=== PATIENT | male | born 1965 | race Caucasian/White ===

== ENCOUNTER → 2016-08-03 | Outpatient (CLI) | payer OTHER ==
[~2016-08-03] MED LIST: FLUO20CA35 PO
--- NOTE | 2016-08-04 06:30 | PAP/PSG TECHNICIAN REPORT ---
[facility] Mail Rider Polysomnogram Report Study name: None Report date: 08/04/2016 Study date: 08/03/2016 Referring Physician: Name: PHIL CHEEK Interpreting Physician: Admin Date of : 1965 Mail Rider: Marlin Berry [facility]. Sex: Male Age: 51 StudyType: PSG PAP Weight: 250 lbs Height: 51 years, Height 5' 10" BMI: 35.87 Medications: Cialis 20 mg, Doxazosin 2 mg, Lopressor 25 mg, Lopid 600 mg, Metformin 500 mg, Patient History 51yr.old male here for a titration sleep study. Patient has been on AUTO PAP 5-20. Parameters Monitored NPSG: E1-M2, E2-M1, Fp1-M2, Fp2-M1, F3-M2, F4-M2, F4-M1, C3-M2, C4-M2, C4-M1, O1-M2, O2-M2, O2-M1, T3-M2, T4-M1, P3-M2, P4-M1, CHIN1, CHIN2, HR, EKG, Legs, PFLOW, SNOR, FLOW, CFLOW, Tidal Volume, THOR, ABDO, SpO2, PLTH, CPRESS, ETCO2 Wave, ETCO2, pH Sleep Architecture Sleep Stages Time at Lights Off 9:26:55 PM STAGES Time (min.) TST (%) Time at Lights On 5:23:25 AM Wake 62.5 -- Total Recording Time (TRT) 477.00 min. N1 24.0 6 Total Sleep Period (TSP) 455.5 min. N2 290.0 70 Total Sleep Time (TST) 414.0min. N3 15.5 4 Awake Time 63.0 min. REM 84.5 20 Wake after Sleep Onset 42.0 min. Sleep Efficiency (SE) 87 % Sleep Onset Latency (PATRICIA) 20.5 min. Number of Stage 1 Shifts None Awakenings 21 Stage Changes 81 Number of REM periods 5 REM 84.5 20 REM Latency 70.0 min. NREM 329.5 80 Body Position Analysis Supine Right Left Side Prone Vertical Total Sleep Time (min.) 388.6 66.5 0.0 66.50 0.0 0.0 Total Sleep Time (%) 84% 16% 0% 16 0% N/A% Total Sleep Time REM (min.) 84.5 0.0 0.0 None 0.0 0.0 Total Sleep Time NREM (min.) 263.0 66.5 0.0 None 0.0 0.0 Intermittent Wake (min.) 41.1 21.4 0.0 None 0.0 0.0 Total Sleep Period (%) 81% None None None None None Arousals Myoclonus (PLM) * Events Count Index Events Count Index Spontaneous 3 0 Events Awake (PLMW) 74 71.0 Respiratory 2 0.3 Events Asleep w/ Arousal (PLMA) 12 1.7 PLM 12 2 Events Asleep w/o Arousal (PLMS) 35 5.1 Snoring 2 0 Total Asleep 47 6.8 Total 19 3 Total 121 15 Respiratory Analysis * CA OA MA CH H RERA Total Count 1 2 0 0 72 1 75 Index 0.1 0.3 0.0 0 10.4 0 11.0 Mean Duration 28.2 10.8 0.0 0.00 25.6 24.1 25.2 Longest Duration 28.2 11.6 0.0 0.00 0.0 24.1 47.7 Respiratory Event Summary Total Supine ~Supine Right Left Prone REM NREM Apneas Count 3 3 0 0 N/A N/A 0 3 Index 0.4 1 0 0.0 N/A N/A 0 1 Hypopneas (4% Desat) Count 72 72 0 0 N/A N/A 36 36 Index 10.4 12.4 0 0.0 N/A N/A 25.6 6.6 Apneas & All Hypopneas Count 75 75 0 0 N/A N/A 36 39 Index 10.9 13 0 0 N/A N/A 25.6 7.1 Respiratory Events (Consultative Sales Associate+All Hyp+RERA) Count 75 76 0 0 N/A N/A 36 39 Index 11.0 13 0 0.0 N/A N/A 25.6 7.3 Respiratory Related Arousal Count 2 76 0 0 N/A N/A 0 2 Index 0.3 0 0 0 N/A N/A 0 0 Snoring Analysis Supine Right Left Prone REM NREM Total Snore duration 30.4 min Snores count 1,308 1 N/A N/A 99 1,210 1,309 Snore mean duration 1.4 Sec Snores index 226 1 N/A N/A 70.3 220.3 189.7 TST with snoring (%) 7.3% Desaturation Event Summary: Minimum %SpO2 Event Count Mean/Min/Max Duration(sec.) Desaturation Index % Time In Bed > 90 92 22.0 / 6.3 / 59.0 17.7 66.7 86 - 90 13 18.3 / 6.3 / 52.8 5.1 32.9 81 - 85 0 N/A 0.0 0.4 76 - 80 0 N/A 0.0 0.0 71 - 75 0 N/A 0.0 0.0 66 - 70 0 N/A 0.0 0.0 61 - 65 0 N/A 0.0 0.0 56 - 60 0 N/A 0.0 0.0 51 - 55 0 N/A 0.0 0.0 < 50 0 N/A 0.0 0.0 Total REM NREM Awake <50% 0.0 min. 0.0 min. 0.0 min. 0.0 min. 51 - 60% 0.0 min. 0.0 min. 0.0 min. 0.0 min. 61 - 70% 0.0 min. 0.0 min. 0.0 min. 0.0 min. 71 - 80% 0.0 min. 0.0 min. 0.0 min. 0.0 min. 81 - 90% 155.6 min. 37.2 min. 107.5 min. 10.9 min. 91 - 100% 312.0 min. 47.3 min. 221.7 min. 43.0 min. Average 91 91 91 92 Minimum SpO2 81 82 81 83 Desaturation Event Index 11.8 27.7 8.7 7.7 # Desat. Events below 89% 44 28 15 1 Time(%) with Saturation below 89% 5.9 2.1 3.5 0.4 Time(min.) with Saturation below 89% 27.5 9.6 16.2 1.6 Time (mins) REM (mins) NREM (mins) % of TST SpO2 Below 90% 83 39 N44 16.6 SpO2 Below 88% 14 0 0 1 Heart Rate Analysis Min (bpm) Max (bpm) Average (bpm) Awake 41 78 65 NREM 55 74 61 REM 56 72 62 Overall 55 74 61 Supplemental O2 Values Minimum O2 level: None Value Start Time End Time Mail Rider Comments Mr. Cheek slept in the right and supine position. No cardiac arrhythmia. PLMs noted. No bruxism noted. CPAP was initiated at +4 CMH2O room air and up-titrated to an optimal level of +14 CMH2O Cflex 2 , which nearly eliminated all respiratory events and snoring. Patient started with a large ResMed F20, the leak was high, and was switched to a ResMed Mirage Quatttro. Mr. Cheek awoke to use the restroom once during the night. .Mr. Cheek stated, I slept well. The final report will be interpreted and signed by a sleep physician. The completed physician report will then be placed in the patient medical record. Therapy Event: Therapy (cm H20) 4 5 6 7 8 9 Total Time at Pressure (min.) 44.2 14.9 48.3 12.6 20.8 59.0 TST at Pressure (min.) 18.7 14.4 46.8 12.6 20.8 57.0 # Periods 1 1 1 1 1 1 Sleep Onset (min.) 20.5 0.0 0.0 0.0 0.0 0.0 REM Onset (min.) N/A N/A 31.4 3.1 0.0 N/A Sleep Efficiency % 42 96 96 100 100 96 Wakefulness (%) 57.8 3.3 3.1 0.0 0.0 3.4 Wakefulness (min.) 25.5 0.5 1.5 0.0 0.0 2.0 NREM 1 (%) 14.7 3.3 3.1 0.0 2.4 2.5 NREM 1 (min.) 6.5 0.5 1.5 0.0 0.5 1.5 NREM 2 (%) 27.5 93.3 78.2 24.9 63.8 79.7 NREM 2 (min.) 12.2 13.9 37.8 3.1 13.3 47.0 NREM 3 (%) 0.0 0.0 14.5 0.0 0.0 14.4 NREM 3 (min.) 0.0 0.0 7.0 0.0 0.0 8.5 REM (%) 0.0 0.0 1.0 75.1 33.8 0.0 REM (min.) 0.0 0.0 0.5 9.5 7.0 0.0 # Arousals 1 0 2 0 2 3 Arousal Index 3.2 0.0 2.6 0.0 5.8 3.2 # Snore 75 156 543 77 115 244 Snore Index 241.2 648.1 696.5 367.2 331.3 256.9 AHI 0.0 12.5 6.4 57.2 37.4 9.5 AHI Supine 0.0 12.5 6.4 57.2 37.4 9.5 AHI Non-Supine N/A N/A N/A N/A N/A N/A NREM AHI 0.0 12.5 6.5 19.2 39.2 9.5 REM AHI N/A N/A 0.0 69.8 34.1 N/A RDI 0.0 12.5 6.4 57.2 37.4 10.5 # Obstructive 0 0 0 0 1 0 # Central Ap 0 0 0 0 0 1 # Mixed 0 0 0 0 0 0 # Hypopneas 0 3 5 12 12 8 RERAS 0 0 0 0 0 1 Total Respiratory Events 0 3 5 12 13 10 Time Below SpO2 89.00% (min.) 1.2 0.8 0.5 1.7 0.9 0.3 Mean NREM SpO2 (%) 90 91 91 91 92 91 Mean REM SpO2 (%) N/A N/A 91 90 91 N/A Mean Sleep SpO2 (%) 90 91 91 90 92 91 Min NREM SpO2 (%) 88 88 88 89 87 85 Min REM SpO2 (%) N/A N/A 89 83 84 N/A Position Supine (min.) 18.7 14.4 46.8 12.6 20.8 57.0 Position Non-supine (min.) 0.0 0.0 0.0 0.0 0.0 0.0 LM Index Sleep 16.1 4.2 5.1 14.3 25.9 4.2 LM Index NREM 16.1 4.2 2.6 0.0 26.1 4.2 LM Index REM N/A N/A 240.0 19.0 25.5 N/A Mean Heart Rate (bpm) 65 64 64 66 63 63 Min Heart Rate (bpm) 61 61 60 61 59 57 Therapy (cm H20) 10 11 12 13 14 Total Time at Pressure (min.) 13.2 15.5 129.7 19.6 98.7 TST at Pressure (min.) 12.7 15.5 106.2 19.6 89.7 # Periods 1 1 1 1 1 Sleep Onset (min.) 0.0 0.0 0.0 0.0 0.0 REM Onset (min.) 7.2 0.0 0.0 10.3 0.0 Sleep Efficiency % 96 100 81 100 90 Wakefulness (%) 3.8 0.0 18.1 0.0 9.1 Wakefulness (min.) 0.5 0.0 23.5 0.0 9.0 NREM 1 (%) 0.0 0.0 6.6 2.5 4.6 NREM 1 (min.) 0.0 0.0 8.5 0.5 4.5 NREM 2 (%) 51.0 0.0 75.3 50.1 49.1 NREM 2 (min.) 6.7 0.0 97.7 9.8 48.5 NREM 3 (%) 0.0 0.0 0.0 0.0 0.0 NREM 3 (min.) 0.0 0.0 0.0 0.0 0.0 REM (%) 45.2 100.0 0.0 47.4 37.2 REM (min.) 6.0 15.5 0.1 9.3 36.7 # Arousals 1 0 4 1 5 Arousal Index 4.7 0.0 2.3 3.1 3.3 # Snore 36 25 3 1 34 Snore Index 169.8 97.0 1.7 3.1 22.7 AHI 51.9 42.7 2.8 12.2 1.3 AHI Supine 51.9 42.7 7.6 12.2 1.3 AHI Non-Supine N/A N/A 0.0 N/A N/A NREM AHI 35.6 N/A 2.8 11.6 1.1 REM AHI 70.2 42.7 0.0 12.9 1.6 RDI 51.9 42.7 2.8 12.2 1.3 # Obstructive 1 0 0 0 0 # Central Ap 0 0 0 0 0 # Mixed 0 0 0 0 0 # Hypopneas 10 11 5 4 2 RERAS 0 0 0 0 0 Total Respiratory Events 11 11 5 4 2 Time Below SpO2 89.00% (min.) 1.3 1.4 9.0 7.9 0.9 Mean NREM SpO2 (%) 91 N/A 92 89 92 Mean REM SpO2 (%) 91 91 89 89 91 Mean Sleep SpO2 (%) 91 91 92 89 92 Min NREM SpO2 (%) 85 N/A 85 81 89 Min REM SpO2 (%) 82 87 89 87 86 Position Supine (min.) 12.7 15.5 39.7 19.6 89.7 Position Non-supine (min.) 0.0 0.0 66.5 0.0 0.0 LM Index Sleep 9.4 0.0 5.6 6.1 4.7 LM Index NREM 8.9 N/A 5.7 5.8 4.5 LM Index REM 10.0 0.0 0.0 6.5 4.9 Mean Heart Rate (bpm) 60 60 59 60 60 Min Heart Rate (bpm) 56 56 55 56 55
--- NOTE | 2016-08-31 16:50 | POLYSOMNOGRAPH REPORT ---
REFERRING PERSON: Dr. Jose Green. [employer]RIMP POND LABORER: Marlin Berry. Mr. Delgado is a 51-year-old male sent for CPAP titration study. He has currently been on Auto PAP at home. His [place] sleepiness scale score on the evening of this study is not recorded. BMI is 35.87. Following the technical and digital specifications of the [place] [employer] (AASM) a standard diagnostic polysomnogram was performed monitoring EEG, EOG, EMG (chin and leg deviations), oxygen saturation, body position, digital video, respiratory effort and airflow.? The sleep Stage and event scoring was based on the AASM Manual for the Scoring of Sleep and Associated Events 2007 edition.? Apneas are defined as a drop in the peak thermal sensor excursion by >90% of baseline for at least 10 seconds.? Hypopneas were scored using the 4% oxygen desaturation rule (4A-Medicare) and a decrease in the nasal pressure excursions by >30% of baseline for at least 10 seconds.? Respiratory effort-related arousal (RERA's) is defined as a sequence of breaths lasting at least 10 seconds characterized by increasing respiratory effort or flattening of the nasal pressure waveform leading to an arousal from sleep when the sequence of breaths does not meet criteria for an apnea or hypopnea.? Apnea Hypopnea index (AHI) is defined as the number of apneas and hypopneas occurring in an hour of sleep.? Respiratory disturbance index (RDI) is defined as the number of apneas, hypopneas, and RERA's occurring in an hour of sleep. Mr. Delgado's total sleep period time was 455.5 minutes. Total sleep time was 414 minutes. Sleep efficiency was 87%. Latency to sleep onset was 20.5 minutes with wake after sleep onset of 42 minutes. Total non-REM sleep time was 329.5 minutes. He spent 6% of that time in N1 sleep, 70% in N2 sleep and 4% in N3 sleep. REM latency was 70 minutes. Total REM sleep time was 84.5 minutes or 20% of total sleep time. There were 19 cortical arousals from sleep. Three of these arousals were spontaneous, 2 were due to respiratory events, 12 due to periodic limb movements of sleep and 2 were due to snoring. There were 47 periodic limb movements noted on this test. Limb movement index was 6.8, limb movement with arousal index was 1.7. There was 1 central, 2 obstructive and no mixed apneas on this test. There were 72 hypopneas and 1 RERA. Apnea-hypopnea index was 10.9 for the entire duration of this study. 1309 snoring events were recorded. Total sleep time with snoring was 7.3%. Mean saturation was 91% with desaturations to 81%. Saturations were less than 89% for 27.5 minutes of recorded time. There was no cardiac ectopy noted on this study. Heart rates ranged from a low of 55 beats per minute to a high of 74 beats per minute during sleep. As stated above, this was a CPAP titration study. Mr. Delgado used a large ResMed F 20 and then was switched to a ResMed Mirage Quattro full facemask because of high leak. He was titrated from a CPAP pressure of 4 to a CPAP pressure of 14 over the course of the night. Increasing pressures were needed to prevent apneas, hypopneas and arousals. He was observed on a pressure of 14 for 89.7 minutes of sleep, 36.7 of those minutes were spent in supine REM sleep. AHI and RDI on this pressure were both 1.3 and saturations were less than 89 for 0.9 minutes of recorded time. IMPRESSION AND PLAN: A 51-year-old male who appears to do well on CPAP at a pressure of 14. He should be placed on CPAP at 14 and download reviewed in 1 month both to check compliance as well as AHI and further pressure adjustments can occur at that time.
== END | disposition home or self-care (01) ==
LOC: C.NEUR 20:00
PROVIDERS: ATTEND Family Medicine
DX: G47.33 Obstructive sleep apnea (adult) (pediatric) (principal); G47.34 Idiopathic sleep related nonobstructive alveolar hypoventilation